=== PATIENT | male | born 1945 ===

== ENCOUNTER 2018-03-31 10:36 | Outpatient (CLI) | payer MEDICARE, BC ==
[~2018-03-31] VITALS: Ht 154.9 cm; Wt 130.6 kg
[2018-03-31 10:30] VITALS: BP 134/70
[~2018-03-31 10:36] MED LIST: ACETAMINOPHEN-1 EAC2 ORAL; ATIVAN1 MG ORAL; ATORVASTATIN CA40 MG ORAL; HYZAAR 50-12.51 EACH ORAL; INVOKANA300 MG PO; METFORMIN HCL500 M1 ORAL; NASACORT10.8 ML NS; NEXIUM40 MG ORAL; ONGLYZA5 MG PO; POTASSIUM CHLO20 ME2 ORAL; SEROQUEL25 MG ORAL; SERTRALINE HCL100 MG PO; TOPIRAMATE100 MG ORAL; TRICOR145 MG ORAL
[2018-03-31] MEDS ORDERED: TRULICITY1.5 MG/0.5 SQ (15:57)
[2018-03-31] MEDS ORDERED: IBUPROFEN600 MG ORAL (15:57)
[2018-03-31] MEDS ORDERED: NASACORT10.8 ML NS (15:57)
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
== END 2018-03-31 11:06 | disposition home or self-care (01) ==
LOC: PAN 10:36
DX: K52.9 Noninfective gastroenteritis and colitis, unspecified (principal); E86.0 Dehydration; F32.9 Major depressive disorder, single episode, unspecified; I10 Essential (primary) hypertension; G47.30 Sleep apnea, unspecified; E11.9 Type 2 diabetes mellitus without complications
CPT/HCPCS: 99202

== ENCOUNTER 2018-04-18 14:17 | Outpatient (CLI) | payer MEDICARE, BC ==
[~2018-04-18 14:17] MED LIST changes: +IBUPROFEN600 MG ORAL; +TRULICITY1.5 MG/0.5 SQ
[2018-04-18 14:58] VITALS: BP 135/77
--- NOTE | 2018-04-18 15:08 | GI Progress Note ---
Assessment/Plan Problems: (1) Diarrhea ICD Codes: R19.7 - Diarrhea, unspecified SNOMED: 00370516 (2) Dehydration ICD Codes: E86.0 - Dehydration SNOMED: 84702018 Status: stable Status Narrative Seen with Dr. Solano. Assessment/Plan SUMMARY OF FINDINGS: 1. Gastritis, status post biopsy. 2. Moderate duodenitis. 3. One colonic polyp removed, see above for details. 4. Small internal hemorrhoids. RECOMMENDATIONS: Follow up biopsy results and treat accordingly. >> sessile serrated polyp RTC PRN We recommend repeat colonoscopy in 5 years. The patient was seen and examined at bedside and all new and available data was reviewed in the patients chart. I agree with the above findings, impression and plan. (Patient seen earlier today. Signature stamp does not reflect patient encounter time.). - Dave Solano MD Subjective Subjective diarrhea resolved Objective Last 24 Hour Vital Signs Date Time Temp Pulse Resp B/P (MAP) Pulse Ox O2 Delivery O2 Flow Rate FiO2 04/18/18 14:58 98.3 89 16 135/77 97 General Appearance: WD/WN, no apparent distress, alert Cardiovascular: normal rate Respiratory/Chest: normal breath sounds, no respiratory distress Abdominal Exam: normal bowel sounds, non tender, soft Extremities: normal range of motion, non-tender Carolyn Wilkerson NP Apr 18, 2018 15:08
== END 2018-04-18 14:47 | disposition home or self-care (01) ==
LOC: PAN 14:17
DX: E86.0 Dehydration (principal); K29.70 Gastritis, unspecified, without bleeding; K29.80 Duodenitis without bleeding; K64.8 Other hemorrhoids
CPT/HCPCS: 99212